=== PATIENT | male | born 1995 | race Hispanic/Latino ===

== ENCOUNTER 2025-07-03 10:56 | Emergency (ER) | payer BC, OTHER | END 2025-07-03 11:29 | disposition home or self-care (01) | LOC: CSHERS 10:56 | DX: Z00.00 Encounter for general adult medical examination without abnormal findings (principal); F12.23 Cannabis dependence with withdrawal; Z55.6 Problems related to health literacy | CPT/HCPCS: 99283 ==

== ENCOUNTER 2025-09-06 18:49 | Emergency (ER) | payer BC, OTHER ==
[2025-09-06 20:07] LABS: Cocaine Metabolite Screen Negative (Negative); THC/Cannabinoid Screen PRELIM POSITIVE (Negative); Tricyclic Screen Negative (Negative)
[2025-09-06 20:07] LABS: #Basophils Less than 0.03 10x3/uL (0.0-0.2); #Eosinophils 0.03 10x3/uL (0.0-0.5); #Monocytes 0.55 10x3/uL (0.0-1.1); #Neutrophils 7.35 10x3/uL (1.5-8.4); %Basophils 0.2 % (0.0-2.0); %Eosinophils 0.3 % (0.0-6.0); %Lymphocytes 7.3 % (18.0-47.0); %Monocytes 6.4 % (0.0-10.0); %Neutrophils 85.2 % (40.0-75.0); Hematocrit 37.6 % (38.8-50.0); Hemoglobin 13.0 g/dL (13.5-17.5); Mean Corpuscular Hemoglobin 30.8 pg (27.0-33.0); Mean Corpuscular Volume 89.1 fL (81.2-95.1); Platelet Count 223 10x3/uL (150-450); Red Blood Cell (RBC) Count 4.22 10x6/uL (4.32-5.72); White Blood Cell (WBC) Count 8.63 10x3/uL (3.5-10.5)
[2025-09-06 20:08] LABS: ALT (SGPT) 17 U/L (Less than 45); AST (SGOT) 23 U/L (11-34); Albumin 3.8 g/dL (3.1-4.5); Alkaline Phosphatase 67 U/L (40-110); Anion Gap 15 mmol/L (10-20); BUN (Urea Nitrogen) 13 mg/dL (8.9-20.6); Bilirubin, Total 0.4 mg/dL (0.3-1.2); Calc. Creatinine Clearance 0 mL/min (70-130); Calcium 7.8 mg/dL (7.8-10.44); Carbon Dioxide 21 mmol/L (22-29); Chloride 113 mmol/L (98-107); Globulin 2.4 g/dL (2.4-3.5); Glucose 113 mg/dL (70-105); Potassium 4.1 mmol/L (3.5-5.1); Sodium 145 mmol/L (136-145)
[2025-09-06 20:09] LABS: Acetaminophen Less than 10 mcg/mL (Less than 10); Salicylate Less than 8.0 mg/dL (Less than 8.0)
== END 2025-09-06 21:23 | disposition home or self-care (01) ==
LOC: CSHERS 18:49
DX: T67.5XXA Heat exhaustion, unspecified, initial encounter (principal); F41.1 Generalized anxiety disorder; R11.0 Nausea; E86.0 Dehydration; T40.715A Adverse effect of cannabis, initial encounter; X30.XXXA Exposure to excessive natural heat, initial encounter
CPT/HCPCS: 80053; 80306; 80307; 85025; 99284